=== PATIENT | female | born 1990 | race Two or more races ===

== ENCOUNTER 2022-02-18 16:39 | Emergency (ER) | payer MEDICAID ==
[~2022-02-18] VITALS: Ht 152.4 cm; Wt 70.8 kg
--- NOTE | 2022-02-18 16:48 | NUR ---
[id number] FRM [facility] C/O DIFFUSE ABDOMINAL PAIN, "HEMATURIA" SINCE NOON. PT ATTCHED TO MONITOR. A&OX4. DR ALCOCER AT BEDSIDE, AWAITING MD ORDERS.
--- NOTE | 2022-02-18 17:01 | NUR ---
IV ESTABLIHSED L WRIST 20G. LABS DRAWN AND COLLECTED AT BEDSIDE.
[2022-02-18 17:15] LABS: BASOPHILS % (AUTO) 0.3 % (0.0-2.0); HEMATOCRIT 36 % (33-45); HEMOGLOBIN 11.8 g/dL (11.5-14.8); LYMPHOCYTES # (AUTO) 2.6 K/uL (0.8-4.8); LYMPHOCYTES % (AUTO) 33.9 % (20.0-44.0); MEAN CORPUSCULAR HGB CONC 33 g/dl (31.0-36.0); MEAN CORPUSCULAR VOLUME 93 fL (82-100); MONOCYTES # (AUTO) 0.7 K/uL (0.1-1.30); NEUTROPHILS # (AUTO) 4.2 K/uL (1.8-8.9); NEUTROPHILS % (AUTO) 55.8 % (43.0-81.0); PLATELET COUNT (AUTO) 254 K/uL (150-450); RED BLOOD CELL COUNT(AUTO) 3.81 MIL/uL (4.0-5.2); WHITE BLOOD COUNT (AUTO) 7.6 K/uL (4.3-11.0)
[2022-02-18] MEDS ORDERED: IV NS 0.9% 250 ML BAG IV ONE (17:30)
[2022-02-18] MEDS ORDERED: IV NS 0.9% 1,000 ML BAG IV ONE (17:30)
[2022-02-18 17:39] LABS: CALCIUM, SERUM 9.5 mg/dL (8.5-10.1); CREATININE 0.8 mg/dL (0.6-1.3); POTASSIUM 4.5 mmol/L (3.5-5.1)
[2022-02-18 18:01] LABS: ALBUMIN 3.9 g/dL (3.4-5.0); BILIRUBIN,DIRECT 0.1 mg/dL (0.0-0.2); BILIRUBIN,TOTAL 0.2 mg/dL (0.2-1.0)
--- NOTE | 2022-02-18 18:12 | NUR ---
URINE COLLECTED AND LAB CALLED TO [facility].
[2022-02-18 18:48] LABS: BILIRUBIN,URINE NEGATIVE (NEGATIVE); COLOR,URINE YELLOW (YELLOW); LEUKOCYTE ESTERASE ,URINE TRACE (NEGATIVE); NITRITE, URINE NEGATIVE (NEGATIVE); PROTEIN,URINE NEGATIVE (NEGATIVE); UGLUCOSE NEGATIVE (NEGATIVE); UROBILINOGEN,URINE 0.2 EU/dL (0.2)
[2022-02-18 18:58] LABS: BACTERIA,URINE 1+ /HPF (None Seen); RBC,URINE 21-50 /HPF (0-2); SQUAMOUS EPITHELIAL CELL,UR 21-50 /HPF (None Seen)
--- NOTE | 2022-02-18 19:01 | NUR ---
PT TAKEN TO CT VIA [facility]
[2022-02-18] MEDS ORDERED: KETOROLAC TROMETHAMINE 15 MG/ML VIAL ONE (19:13)
[2022-02-18] MEDS ORDERED: KETOROLAC TROMETHAMINE INJ 30 MG/ML VIAL IV ONE (19:30)
[2022-02-18] MEDS ORDERED: NITR100C6 PO (19:58)
--- NOTE | 2022-02-19 08:30 | NUR ---
AAO, appropriate/responsive. Moves all extremities - follows commands. Breakfast served. Pt for discharge back to [facility] Await acceptance
--- NOTE | 2022-02-19 08:41 | NUR ---
FAXED CLINICALS TO [facility].
--- NOTE | 2022-02-19 10:00 | NUR ---
PT INCONTEIT OF URINE CHANGE DIAPER AND CLEAN PT WITH SITTER (NIMCO ) AND FEMALE BUHR DRESSER STUDENT ( ANA )
--- NOTE | 2022-02-19 10:18 | NUR ---
[facility] CALLED,EFRA SAID THAT THEY ARE WAITING ON 2 DISCHARGES
[2022-02-19] MEDS ORDERED: LORAZEPAM 1 MG TABLET PO ONE (10:30)
[2022-02-19] MEDS ORDERED: LORAZEPAM 1 MG TABLET ONE (10:35)
--- NOTE | 2022-02-19 15:34 | NUR ---
CALLED [facility] FOR BED UPDATE, ACCORDING TO INTAKE: THE PATIENT NEEDS A WHEELCHAIR ROOM AND THEY ARE WAITING FOR A RESPONSE FROM [place] TO ACCEPT THE PATIENT THERE.
--- NOTE | 2022-02-20 04:00 | NUR ---
PT SLEEPING BUT AROUSABLE. TOLERATING R/A WELL WITH NO SOB, RESP EVEN AND NON LABORED.
[2022-02-20] MEDS ORDERED: ISON300T27 PO (09:52)
[2022-02-20] MEDS ORDERED: RISP0.2515 PO (09:52)
[2022-02-20] MEDS ORDERED: BENZ1TAB7 PO (09:52)
[2022-02-20] MEDS ORDERED: RIFA150C22 PO (09:52)
[2022-02-20] MEDS ORDERED: SERT25TA5 PO (09:52)
[2022-02-20] MEDS ORDERED: TEMA15CA PO (09:52)
[2022-02-20] MEDS ORDERED: DIVA-78 PO (09:52)
[2022-02-20] MEDS ORDERED: LORA-259 PO (09:52)
[2022-02-20] MEDS ORDERED: ARIP2TAB3 PO (09:52)
[2022-02-20] MEDS ORDERED: PYRI-7 PO (09:52)
[2022-02-20] MEDS ORDERED: LEVE500T9 PO (09:52)
--- NOTE | 2022-02-20 15:40 | NUR ---
CALLED [facility] [phone]
[2022-02-20 15:50] VITALS: BP 129/72
--- NOTE | 2022-02-20 16:15 | NUR ---
SPOKE TO PT MOTHER, STATED THAT SHE'S NOT PICKING UP THE PT AND WHOULD NOT STATE WHY SHE IS UNABLE TO. STATED THAT SHE WAS SUPPOSED TO BE PLACED BY [facility].
--- NOTE | 2022-02-20 16:20 | NUR ---
[facility]RIAN MEDINA CALLED AND ASK FOR ASSISTANCE IN DISCHARGING HER SINCE [facility] WHERE SHE CAME FROM IS REFUSING TO TAKE HER BACK.sHE SAID THAT SHE WILL CALL THE [facility] HANDLING HER CASE.
--- NOTE | 2022-02-20 16:33 | NUR ---
RANDEE CALLED FROM [facility] CALLED PT ACCEPTED TO [facility] ER UNDER DR. HANKS PLEASE CALL [phone] FOR REPORT BLS [facility] TRANSPORT AT 1730.
--- NOTE | 2022-02-20 17:22 | NUR ---
report given to alli for morales
--- NOTE | 2022-02-20 18:15 | NUR ---
REPORT GIVEN TO TRANSPORTATION, PT IS BEING TRANSPORTED TO [facility]. PT BEING TRANPORTED IN STABLE CONDITION.
== END 2022-02-20 18:53 | disposition short-term general hospital (02) ==
LOC: ER 17:43
DX: R10.84 Generalized abdominal pain (principal); N39.0 Urinary tract infection, site not specified; G40.909 Epilepsy, unspecified, not intractable, without status epilepticus; G80.9 Cerebral palsy, unspecified; Z20.822 Contact with and (suspected) exposure to COVID-19; R31.9 Hematuria, unspecified; F25.9 Schizoaffective disorder, unspecified
CPT/HCPCS: 99285; 74176; 96374; 96361; 85025; 80048; 83690; 80076; 84703; 81001; 36415; 87426; J7030; J1885; C9803